=== PATIENT | female | born 1975 | race Hispanic/Latino ===

== ENCOUNTER 2016-11-06 06:16 | Inpatient (IN) | payer BC ==
[2016-11-06] MEDS: Lactated Ringer's 1,000 ML IV SCH ×2 (07:00→09:00)
[2016-11-06 07:26] VITALS: BMI 42.0
[2016-11-06] MEDS ORDERED: Oxytocin 30 units/LR 500ML 30 U/500 ML BAG IV ONE ×2 (08:08→11:12)
[2016-11-06] MEDS ORDERED: cefOXitin Sodium 1 GM in Sodium Chloride 0.9% 100 ML IVPB ONE (08:09)
[2016-11-06 08:21] LABS: BASO % 0.3 % (0.0-2.0); EOS # 0.2 K/uL (0.0-0.7); EOS % 1.5 % (0.0-4.0); HEMOGLOBIN 10.7 g/dL (12.0-16.0); LYMPH # 2.7 K/uL (1.0-4.3); LYMPH % 23.6 % (20.0-40.0); MEAN CELL VOLUME 83.8 fl (81.0-99.0); MEAN CORPUSCULAR HEMOGLOBIN 27.1 pg (27.0-31.0); MEAN CORPUSCULAR HGB CONC 32.3 g/dL (33.0-37.0); MONO # 0.9 K/uL (0.0-0.8); MONO % 7.3 % (0.0-10.0); NEUT # 7.8 K/uL (1.8-7.0); NEUT % 67.3 % (50.0-75.0); NRBC % 0.1 % (0.0-0.0); RBC 3.94 Mil/uL (3.80-5.20); RED CELL DISTRIBUTION WIDTH 15.1 % (11.5-14.5); WHITE BLOOD COUNT 11.6 K/uL (4.8-10.8)
[2016-11-06] MEDS ORDERED: Morphine 5 mg/10 ml preservative-free Inj(Duramorph) ONE (09:41)
[2016-11-06] MEDS ORDERED: Phenylephrine 10 mg/ml Inj ONE (09:41)
[2016-11-06] MEDS ORDERED: DiphenhydrAMINE 50 mg/ml Inj IVP PRN (12:09)
[2016-11-06] MEDS ORDERED: Oxycodone/Acetaminophen 5/325 mg Tab PO PRN (12:10)
--- NOTE | 2016-11-06 12:30 | OBADHP ---
Datetime: 11/06/2016 12:25 Pelvic Type - PN: Adequate Extremities - PN: Normal Abdomen - PN: Normal Back - PN: Normal Breast - PN: Normal Lungs - PN: Normal Heart - PN: Normal Thyroid - PN: Normal Neurologic - PN: Normal HEENT - PN: Normal General - PN: Normal Presentation-Admit: Vertex FHR - Baseline A Provider: 120 Membranes, Provider: Intact Contraction Comments Provider: irregular Gestation - Est Wks by US: 39.0 Vital Signs Provider: Reviewed; Within Normal Limits IP Chief Complaint: Uterine contractions NICHD Variability Prov Fetus A: Moderate 6-25bpm NICHD Accel Fetus A IP Provider: 10X10 FHR Category Provider Fetus A: Category I NICHD Decel Fetus A IP Provider: None Dilatation, Provider: ft Effacement, Provider: 50% Station, Provider: -2 Genitourinary Exam: Normal DTRs - PN: Normal EGA AdmitDate IP: 39.0 IP Adm Impression: Term, intrauterine ; Intact Membranes IP Admit Plan: Admit to unit; Initiate Section protocol
--- NOTE | 2016-11-06 12:39 | OBDS ---
DELIVERY PERSONNEL Delivery Doctor: Milly Gates MD Scrub Nurse: Renee Chowdhury Public Stenographer: Janna Li RN Anesthesiologist: Dr. Geronimo MATERNAL INFORMATION Delivery Anesthesia: Spinal Medications in Delivery: Pitocin 30 units Estimated Blood Loss (ml): 800 Placenta Cultured: No Maternal Complications: None Provider Comments: delivery of live baby girl 9//9 clear fluid inuchal cord tubes and ovaries wnl ebl 800ml LABOR SUMMARY EDC: 11/13/2016 00:00 No. Babies in Womb: 1 Attempted: No Labor Anesthesia: Spinal LABOR INFORMATION Reason for Induction: Not Applicable Onset of Labor: 11/06/2016 05:00 Oxytocin: N/A Group B Beta Strep: Negative Steroids Given: None Reason Steroids Not Administered: Not Applicable MEMBRANES Membranes Rupture Method: Artificial Amniotic Fluid Color: Clear Amniotic Fluid Amount: Moderate Amniotic Fluid Odor: Normal STAGES OF LABOR Stage 3 hrs: 0 Stage 3 min: 1 Total Time in Labor hrs: 6 Total Time in Labor min: 12 VAGINAL DELIVERY Episiotomy: None Laceration Extension: N/A Laceration Type: None Sponge Count Correct: Yes Sharps Count Correct: Yes Count Comment: correct CSECTION DELIVERY Primary Indication: Repeat Elective Secondary Indication: Other Other Secondary Indication: previous c/s in labor CSection Urgency: Elective CSection Incidence: Repeat Labor: Labor Elective: Elective CSection Incision: Lower Uterine Transverse BABY A INFORMATION Delivery Date/Time: 11/06/2016 11:11 Method of Delivery: Born in Route : No : N/A Forceps: N/A Vacuum Extraction: N/A Shoulder Dystocia : No SHOULDER DYSTOCIA BABY A Delivery Date/Time: 11/06/2016 11:11 PRESENTATION/POSITION BABY A Presentation: Cephalic Cephalic Presentation: Vertex Breech Presentation: N/A PLACENTA INFORMATION BABY A Placenta Delivery Time : 11/06/2016 11:12 Placenta Method of Delivery: Spontaneous Placenta Status: Delivered SCORES BABY A Heart Rate 1 min: >100 bpm Resp Effort 1 min: Good Cry Reflex Irritability 1 min: Cough or Sneeze or Pulls Away Muscle Tone 1 min: Active Motion Color 1 min: Body [place], Extremities Blue Resuscitation Effort 1 min: Tactile Stimulation SCORE 1 MIN: 9 Heart Rate 5 min: >100 bpm Resp Effort 5 min: Good Cry Reflex Irritability 5 min: Cough or Sneeze or Pulls Away Muscle Tone 5 min: Active Motion Color 5 min: Body [place], Extremities Blue Resuscitation Effort 5 min: Tactile Stimulation SCORE 5 MIN: 9 INFANT INFORMATION BABY A Gestational Age at Delivery: 39.0 Gestational Status: Term Outcome : Liveborn Condition : Stable Infant Sex: Female IDENTIFICATION/MEDS BABY A ID Band Number: [id number] ID Band Location: Left Leg; Left Arm WEIGHT/LENGTH BABY A Birthweight (gms): 3300 Infant Weight (lb): 7 Weight (oz): 4 CORD INFORMATION BABY A No. Cord Vessels: 3 Nuchal Cord : Around Neck x1, Loose Suction: None ASSESSMENT BABY A Infant Complications: None Physical Findings at Delivery: Within Normal Limits Respirations: Appears Normal Exhaust Machine Operator/ALS Called : No Infant Care By: Bonnie Odom Transferred To: Nursery
[2016-11-07] MEDS: Oxycodone/Acetaminophen 5/325 mg Tab PO PRN ×2 (06:09→21:36)
[2016-11-07 07:40] LABS: BASO % 0.3 % (0.0-2.0); EOS # 0.2 K/uL (0.0-0.7); EOS % 1.2 % (0.0-4.0); HEMOGLOBIN 10.6 g/dL (12.0-16.0); LYMPH # 2.1 K/uL (1.0-4.3); LYMPH % 16.1 % (20.0-40.0); MEAN CELL VOLUME 84.7 fl (81.0-99.0); MEAN CORPUSCULAR HEMOGLOBIN 27.5 pg (27.0-31.0); MEAN CORPUSCULAR HGB CONC 32.5 g/dL (33.0-37.0); MEAN PLATELET VOLUME 8.8 fl (7.2-11.7); MONO # 0.8 K/uL (0.0-0.8); MONO % 5.9 % (0.0-10.0); NEUT # 10.2 K/uL (1.8-7.0); NEUT % 76.5 % (50.0-75.0); RBC 3.86 Mil/uL (3.80-5.20); RED CELL DISTRIBUTION WIDTH 14.9 % (11.5-14.5); WHITE BLOOD COUNT 13.3 K/uL (4.8-10.8)
--- NOTE | 2016-11-07 09:39 | OBPPN ---
Datetime: 11/07/2016 09:36 PP Pain Prov: Within normal limits PP Pain Prov comment: No SOB chest pains or leg pains PP Nausea Prov: Denies PP Flatus Prov: Yes PP Breasts Prov: Normal PP Lungs Prov: Normal PP Abdomen/Uterus Prov: Abnormal PP Lochia Prov: Normal PP Vulva/Perineum Prov: Normal PP CVA Tenderness Prov: Normal PP Extremities Prov: Abnormal PP C/S Incision Prov: Normal PP Progress Prov: Not Applicable PP Comments Phys Exam Prov: Abd soft not distended fundus firm below the umb Incision clean and dry no bleeding or discharge Ext no calf tenderness. PP Impression Prov: Normal progression PP Plan Prov: Continue present management PP Progress Note Prov: OOB and ambulation Continue PO care and pending cbc IP PP Procedures: None Vital Signs Provider PP: Reviewed
[2016-11-07] MEDS ORDERED: Simethicone 80 mg Chewtab PO PRN (12:46)
[2016-11-07] MEDS: Simethicone 80 mg Chewtab PO SCH (21:30)
--- NOTE | 2016-11-07 23:48 | OP ---
PROCEDURE DATE: 11/06/2016 PREOPERATIVE DIAGNOSIS: Term , previous section, and early labor. POSTOPERATIVE DIAGNOSIS: Term , previous section, and early labor. PROCEDURE: Repeat low transverse section. SURGEON: Dr. Gates. CORPORATE LAW ASSISTANT: Dr. Cardenas. TYPE OF ANESTHESIA: Spinal anesthesia. ANESTHESIA ADMINISTERED BY: Dr. Geronimo FINDINGS: Term size uterus, live baby girl, Apgars 9 and 9, clear fluid, with 1 loose nuchal cord. ESTIMATED BLOOD LOSS: 800 mL DESCRIPTION OF PROCEDURE: With the patient in the supine position under spinal anesthesia, the patient was prepped and draped in the usual sterile manner. Pfannenstiel incision was made and taken down to the fascia in layers. Dr. Cardenas was present from the beginning of the surgery and assisted in preparation of the procedure. After the Pfannenstiel incision was made and taken down to the fascia, fascia was incised and extended bilaterally. Peritoneum was grasped and muscles were from the fascia by sharp and blunt dissection after the peritoneum was grasped and incised vertically. Upon entering the abdominopelvic cavity, pericolic gutters were packed with wet laps, pushing the bowel away from the operative field. After this was done, a lateral flap was established pushing the bladder away from the operative field. Then a low transverse incision was made bilaterally. Baby was removed without any complication with 1 loose nuchal cord and the baby was given to key holder who resuscitated. The placenta was removed intact and uterus exteriorized and cleaned. After this was done, the uterus was closed in 2 layers with 1 Vicryl and maintaining hemostasis. Pelvic cavity was irrigated until clean and uterus was in reposition. The hemostasis was again maintained. The peritoneum was closed with 1 Vicryl. Muscles were approximated with 1 Vicryl. Following that the fascia was closed in , Dr. Cardenas doing his half, and I am doing my half with running interlocking stitch with 2-0 Vicryl. Following this a subcutaneus stitch was placed approximated in layers and following this the skin was closed with sean. Estimated blood loss was about [address] Cardenas was present from the beginning of the surgery to the end of the surgery where he assisted me in every step of the way. The patient tolerated the procedure very well. and was in satisfactory condition on her way to recovery room. Gary Gates MD
[2016-11-08] MEDS: Lactated Ringer's 1,000 ML IV SCH ×2 (07:39→15:39)
[2016-11-08] MEDS: Simethicone 80 mg Chewtab PO SCH ×4 (09:00→16:45)
--- NOTE | 2016-11-08 11:57 | OBPPN ---
Datetime: 11/08/2016 11:45 PP Pain Prov: Within normal limits PP Pain Prov comment: No SOB, chest pains or leg pains PP Nausea Prov: Denies PP Flatus Prov: Yes PP BM Prov: Yes PP Nausea Prov comment: voiding well PP Breasts Prov: Normal PP Heart Prov: Normal PP Lungs Prov: Normal PP Abdomen/Uterus Prov: Abnormal PP Lochia Prov: Normal PP Vulva/Perineum Prov: Normal PP CVA Tenderness Prov: Normal PP Extremities Prov: Abnormal PP C/S Incision Prov: Normal PP Progress Prov: Not Applicable PP Comments Phys Exam Prov: Breast NT, not engorged Abd soft not distended fundus firm below the um b. Incision clean and dry no suppt or active bleeding Ext juan edema PP Impression Prov: Normal progression PP Plan Prov: Continue present management PP Progress Note Prov: Continue PO care OOB and ambulation IP PP Procedures: None Vital Signs Provider PP: Reviewed
--- NOTE | 2016-11-09 07:02 | OBPPN ---
Datetime: 11/09/2016 06:57 PP Pain Prov: Within normal limits PP Pain Prov comment: no SOB, chest or leg pains PP Nausea Prov: Denies PP Flatus Prov: Yes PP BM Prov: Yes PP Nausea Prov comment: voiding well PP Breasts Prov: Normal PP Lungs Prov: Normal PP Abdomen/Uterus Prov: Abnormal PP Lochia Prov: Normal PP Vulva/Perineum Prov: Normal PP CVA Tenderness Prov: Normal PP Extremities Prov: Abnormal PP C/S Incision Prov: Normal PP Progress Prov: Not Applicable PP Comments Phys Exam Prov: breast Not engorged NT, Abd soft ND, depressible, fundus firm, incision clean and dry no suppt or discharge, ext no calf tenderness bilateral edema. PP Impression Prov: Normal progression PP Plan Prov: Discharge PP Progress Note Prov: D/C home with instructions and appt to office 1 wk IP PP Procedures: None Vital Signs Provider PP: Reviewed
--- NOTE | 2016-11-09 07:02 | OBDCSUM ---
Datetime: 11/09/2016 07:00 Discharged to, Provider: Home Follow up at, Provider: Dr Gates Disch Instr Activity: Bedrest; May be up to bathroom; May be up for meals; May Shower Disch Instr Diet: Regular Discharge Instructions, Provider: Routine instructions given Discharge Diagnosis, Provider: Term Delivered Follow up in weeks, Provider: 1 wk Disch Referrals: None Contraception discussed, Prov: Yes Disch Activity Restrictions: No exercising; No lifting; No driving; Minimize walking; Minimize stair -climbing; No sexual activity; Nothing in vagina - [place], tampons, douche Discharge Comment, Provider: Rx for percocet given Pelvic and bed rest Contraception after Delivery: Undecided
[2016-11-09] MEDS: Simethicone 80 mg Chewtab PO SCH (09:51)
[2016-11-09 17:54] VITALS: BP 119/70; PULSE 76; RESP 20; TEMP 97.6
== END 2016-11-09 12:15 | disposition home or self-care (01) | DRG 766 ==
LOC: H.EROB2 06:16 → H.L&D 07:40 → H.OB/GYN 15:00
PROVIDERS: ADMIT Specialist; ATTEND Specialist
PROC: 10D00Z1 Extraction of Products of Conception, Low, Open Approach (ICD-10-PCS; principal; 2016-11-06)
PROC: 4A1HXCZ Monitoring of Products of Conception, Cardiac Rate, External Approach (ICD-10-PCS; 2016-11-06)
DX: O34.211 Maternal care for low transverse scar from previous cesarean delivery (principal); O69.81X0 Labor and delivery complicated by cord around neck, without compression, not applicable or unspecified; O09.523 Supervision of elderly multigravida, third trimester; Z3A.39 39 weeks gestation of pregnancy; Z37.0 Single live birth

== ENCOUNTER 2016-11-14 23:03 | Observation (INO) | payer BC ==
[2016-11-14 23:04] VITALS: BMI 40.2
[2016-11-14] MEDS ORDERED: Morphine 4 MG/ML VIAL IVP ONE (23:26)
[2016-11-14] MEDS ORDERED: Sodium Chloride 0.9% 1,000 ML IV SCH (23:30)
--- NOTE | 2016-11-14 23:30 | ED PDOC ---
HPI: Female Pain Time Seen by Provider: 11/14/16 23:15 Chief Complaint (Nursing): Female Genitourinary Chief Complaint (Provider): Vaginal Bleeding History Per: Patient History/Exam Limitations: no limitations Onset/Duration Of Symptoms: Hrs Current Symptoms Are (Timing): Still Present Severity: Moderate Pain Scale Rating Of: 7 Quality Of Discomfort: Cramping, "Pain" Associated Symptoms: Chills. denies: Fever, Nausea Alleviating Factors: None Additional History Per: Patient Additional Complaint(s): 41 y/o female with no significant medical problems at POD#8 s/p presenting to ED with reports of heavy and active vaginal bleeding that started about an hour prior to presentation associated with pelvic pain. Has already used 2 pads for which all 2 were soaking wet. Pt is a currently not breast feeding and has been doing well since being home from the hospital earlier this week. Denies any fever, nausea, vomiting, lightheadedness, or visual changes. Abnormal Vaginal Bleeding: Yes Last Menstral Period: Recently gave (11/06/16) : 2 Para: 2 Miscarriage: 0 Past Medical History Vital Signs: Last Vital Signs Temp 98.7 F 11/14/16 23:04 Pulse 95 H 11/14/16 23:04 Resp 16 11/14/16 23:04 BP 134/91 H 11/14/16 23:04 Pulse Ox 100 11/14/16 23:04 - Medical History PMH: Denies: Depression, Diabetes, HTN - Surgical History Surgical History: - Family History Family History: States: No Known Family Hx - Home Medications Home Medications: Ambulatory Orders Medication Instructions Recorded Vit No.126/Iron/Folic 1 tab PO DAILY MDD 1tab 06/16/16 [Classic Tablet] oxyCODONE/Acetaminophen [Percocet 1 tab PO Q4 PRN #30 tab 11/09/16 5/325 mg Tab] - Allergies Allergies/Adverse Reactions: Allergies Allergy/AdvReac Type Severity Reaction Status Date / Time No Known Allergies Allergy Verified 11/14/16 23:04 Review of Systems Constitutional: Positive for: Chills. Negative for: Fever, Sweats Cardiovascular: Negative for: Chest Pain Respiratory: Negative for: Cough, Shortness of Breath Gastrointestinal: Negative for: Nausea, Vomiting Genitourinary Female: Positive for: Vaginal Bleeding. Negative for: Dysuria, Frequency Neurological: Negative for: Weakness, Seizures Physical Exam - Physical Exam Appears: Positive for: Uncomfortable Head Exam: Positive for: NORMAL INSPECTION, NORMOCEPHALIC Skin: Positive for: Normal Color Cardiovascular/Chest: Positive for: Regular Rate, Rhythm, Chest Non Tender. Negative for: Edema, Murmur Respiratory: Positive for: Normal Breath Sounds. Negative for: Decreased Breath Sounds, Wheezing Gastrointestinal/Abdominal: Positive for: Bowel Sounds, Soft, Tenderness (in lower abdomen) Pelvic Exam: Positive for: Active Bleeding Extremity: Negative for: Tenderness, Pedal Edema Neurologic/Psych: Positive for: Alert, station repairer II-XII, Oriented - Laboratory Results Result Diagrams: 11/14/16 23:50 11/14/16 23:50 - ECG O2 Sat by Pulse Oximetry: 100 - Progress ED Course And Treament: cbc, cmp type and screen BHCG transvaginal ultrasound to rule out retained products of contraception: No evidence of retained products Spoken with pt's BACKEND TESTER and made aware of pt being in ED actively bleeding, pt seen by her private BACKEND TESTER Pt will be admitted to [facility] for observation Once dose of Methergine 0.2IM given to pt Will continue to monitor Re-evaluation Time: 01:45 Condition: Improving,but remains with symptoms (pain improved, but still bleeding ) - Physician Consult Information Time Consulting Physican Contacted: 12:30 Physician Contacted: Gary Gates Outcome Of Conversation: Saw pt, recommends admiting for observation and treating as PPH Disposition - Clinical Impression Clinical Impression: hemorrhage of vagina - Patient ED Disposition Is Patient to be Admitted: Yes - Disposition Disposition Time: 02:20 Condition: FAIR - Pt Status Changed To: Hospital Disposition Of: Observation
[2016-11-14] MEDS ORDERED: Morphine 4 MG/ML VIAL ONE (23:31)
[2016-11-15 00:08] LABS: HEMOGLOBIN 9.7 g/dL (12.0-16.0); MEAN CELL VOLUME 83.3 fl (81.0-99.0); MEAN CORPUSCULAR HEMOGLOBIN 27.7 pg (27.0-31.0); MEAN CORPUSCULAR HGB CONC 33.2 g/dL (33.0-37.0); RBC 3.52 Mil/uL (3.80-5.20); RED CELL DISTRIBUTION WIDTH 14.8 % (11.5-14.5)
[2016-11-15 00:25] LABS: ALB/GLOB RATIO 1.1 (1.0-2.1); ALBUMIN 3.5 g/dL (3.5-5.0); ALT/SGPT 38 U/L (9-52); AST/SGOT 38 U/L (14-36); BLOOD UREA NITROGEN 20 mg/dl (7-17); CALCIUM 8.9 mg/dL (8.4-10.2); GFR AFRICAN-AMERICAN > 60; GFR NON-AFRICAN AMERICAN > 60
[2016-11-15 00:36] LABS: INR 1.2 (0.9-1.2); PARTIAL THROMBOPLASTIN TIME 35.3 Seconds (25.6-37.1)
[2016-11-15] MEDS: Sodium Chloride 0.9% 1,000 ML IV SCH ×2 (01:57→21:30)
[2016-11-15 05:57] LABS: HEMOGLOBIN 8.1 g/dL (12.0-16.0); MEAN CELL VOLUME 83.6 fl (81.0-99.0); MEAN CORPUSCULAR HEMOGLOBIN 27.1 pg (27.0-31.0); MEAN CORPUSCULAR HGB CONC 32.4 g/dL (33.0-37.0); RBC 2.98 Mil/uL (3.80-5.20); RED CELL DISTRIBUTION WIDTH 14.7 % (11.5-14.5); WHITE BLOOD COUNT 14.9 K/uL (4.8-10.8)
--- NOTE | 2016-11-15 08:07 | US ---
PROCEDURE: HISTORY: r/o retained products of conception COMPARISON: None TECHNIQUE: FINDINGS: Uterus is enlarged measuring 17.8 x 10.7 x 14.7 centimeters. The endometrium measures 18 millimeters with complex echotexture. There is a roughly 4.2 x 4.3 centimeter mass in the corpus which may represent a fibroid. The ovaries are not identified. IMPRESSION: Enlarged uterus with complex endometrial canal; cannot rule out retained products of conception. Possible corporal leiomyoma. Recommend follow-up and clinical correlation.
[2016-11-15 08:11] LABS: HEMOGLOBIN 7.6 g/dL (12.0-16.0); MEAN CELL VOLUME 83.5 fl (81.0-99.0); MEAN CORPUSCULAR HEMOGLOBIN 27.7 pg (27.0-31.0); MEAN CORPUSCULAR HGB CONC 33.2 g/dL (33.0-37.0); RBC 2.75 Mil/uL (3.80-5.20); RED CELL DISTRIBUTION WIDTH 14.9 % (11.5-14.5); WHITE BLOOD COUNT 11.9 K/uL (4.8-10.8)
[2016-11-15] MEDS ORDERED: Oxytocin 30 units/LR 500ML 30 U/500 ML BAG IV ONE (09:34)
[2016-11-15 09:46] LABS: HEMOGLOBIN 7.2 g/dL (12.0-16.0); MEAN CELL VOLUME 83.4 fl (81.0-99.0); MEAN CORPUSCULAR HEMOGLOBIN 27.2 pg (27.0-31.0); MEAN CORPUSCULAR HGB CONC 32.6 g/dL (33.0-37.0); RBC 2.66 Mil/uL (3.80-5.20); RED CELL DISTRIBUTION WIDTH 14.7 % (11.5-14.5); WHITE BLOOD COUNT 12.1 K/uL (4.8-10.8)
[2016-11-15 09:56] LABS: ALB/GLOB RATIO 1.1 (1.0-2.1); ALBUMIN 3.1 g/dL (3.5-5.0); ALT/SGPT 32 U/L (9-52); AST/SGOT 38 U/L (14-36); BLOOD UREA NITROGEN 16 mg/dl (7-17); CALCIUM 8.1 mg/dL (8.4-10.2); GFR AFRICAN-AMERICAN > 60; GFR NON-AFRICAN AMERICAN > 60
--- NOTE | 2016-11-15 12:30 | CP.PCM.PN ---
Subjective - Date & Time of Evaluation Date of Evaluation: 11/15/16 Time of Evaluation: 12:27 - Subjective Subjective: feels comfortable at present mild bleeding Objective - Vital Signs/Intake and Output Vital Signs (last 24 hours): Temp Pulse Resp BP Pulse Ox 98.9 F 102 H 18 120/74 98 11/15/16 12:20 11/15/16 12:20 11/15/16 12:20 11/15/16 12:20 11/15/16 12:20 - Medications Medications: Current Medications Sodium Chloride (Sodium Chloride 0.9%) 1,000 mls @ 150 mls/hr IV .Q6H40M [facility] Stop: 11/16/16 01:32 Last Admin: 11/15/16 01:57 Dose: 150 mls/hr Oxytocin (Oxytocin 30 Units/Lr 500ml) 30 u in 500 mls @ 100 mls/hr IV .Q5H ONE PRN Reason: Protocol Stop: 11/15/16 14:33 Last Admin: 11/15/16 11:31 Dose: 100 mls/hr Ketorolac Tromethamine (Toradol) 30 mg IVP Q6 PRN PRN Reason: Pain, moderate (4-7) Last Admin: 11/15/16 11:37 Dose: 30 mg Methylergonovine Maleate (Methergine) 0.2 mg PO Q8 ROE - Labs Labs: 11/15/16 09:30 11/15/16 09:30 PT 12.0 Seconds (9.8-13.1) 11/14/16 23:50 INR 1.2 (0.9-1.2) 11/14/16 23:50 APTT 35.3 Seconds (25.6-37.1) 11/14/16 23:50 - Eye Exam Additional comments: v.s stable afebrile mild bleeding Assessment and Plan - Assessment and Plan (Free Text) Assessment: post bleeding s/p Plan: will transfuse at present continue present care
--- NOTE | 2016-11-15 16:49 | PCM.RRTMUL ---
TRAVELING BUYER Nurse Assessment - Situation TRAVELING BUYER Responder Arrival Time:: 09:25 Location:: [address] [place] [address] Room Number:: [id number] TRAVELING BUYER Reason for Call: Looks Sicker TRAVELING BUYER Called By: RN - IV IV Inserted during TRAVELING BUYER?: No - Respiratory Oxygen Delivery Method:: Room Air - Medication Medications Administered During TRAVELING BUYER :: Mthergen IM - Diagnostic Test Ordered EKG:: No Chest X-Ray:: No CT Scan:: No - Stat Labs Ordered TRAVELING BUYER Stat Labs Ordered:: CBC TRAVELING BUYER Other Labs Ordered:: Type and Cross CPR started during TRAVELING BUYER?: No - Vital Signs Blood Pressure:: 136/89 Pulse Rate:: 111 Respiratory Rate:: 14 Temperature:: 99.0 F - Joey Coma Scale Coma Scale Eye Opening:: Spontaneous Coma Scale Motor:: Obeys Commands Movement Coma Scale Verbal:: Oriented Coma Scale Total:: 15 - Time TRAVELING BUYER Ended Time TRAVELING BUYER Ended:: 09:45 - Vital Signs at end of TRAVELING BUYER Blood Pressure:: 124/79 Pulse Rate:: 124 Respiratory Rate:: 20 Temperature:: 98 F O2 Sat by Pulse Oximetry:: 100 - Recommendations 5) TRAVELING BUYER Level of Care Recommendations: Transfer to [address] [place] [address] 6) Notifications: Attending Physician, Consultations, Family or Designated Caregiver I.Reason for TRAVELING BUYER - A) Acute Change in Patient: Subjective: TRAVELING BUYER Time: 9:22am TRAVELING BUYER Location: [address] [place] [address] TRAVELING BUYER Reason: Acute Bleed S: TRAVELING BUYER called by nurse because patient of acute vaginal bleeding. Pt noted to be complaining of severe abdominal pain the night prior O: TRAVELING BUYER Vitals: Temp 98.1, BP 119/89, HR 132, RR 16, 100% on Rm air General: Pt seen lying in bed, tearful, NAD, alert oriented x3 Cardiac: Regular rate and rythm, Normal S1, S2, no murmurs Lungs: Not in any respiratory distress, no crackles, wheezing Abdominal Exam: Non tender, nondistended, Uterus fondus elevated, normal bowel sounds Peripheral: No pedal edema, good capillary refills, dorsal pulsus +2 BL TRAVELING BUYER Interventions: CBC, CMP 1 unit of RBC transfused (Last hg was 7.9) Pitocin 30units IV as per OB 1 liter fluid bolus, IV A/P: 41 yo female s/p 2 days ago, presents with an acute vaginal bleed. 1. Follow Labs, Monitor BP 2. Start Pitocin 30ml IV 3. Consult OB 4. Transfer to Tele TRAVELING BUYER End Time: 9:43am
[2016-11-16] MEDS ORDERED: Simethicone 80 mg Chewtab PO ONE (03:16)
[2016-11-16 06:41] LABS: BASO % 0.5 % (0.0-2.0); EOS # 0.3 K/uL (0.0-0.7); EOS % 2.7 % (0.0-4.0); HEMOGLOBIN 6.9 g/dL (12.0-16.0); LYMPH # 2.3 K/uL (1.0-4.3); LYMPH % 21.9 % (20.0-40.0); MEAN CELL VOLUME 85.2 fl (81.0-99.0); MEAN CORPUSCULAR HEMOGLOBIN 28.5 pg (27.0-31.0); MEAN CORPUSCULAR HGB CONC 33.5 g/dL (33.0-37.0); MEAN PLATELET VOLUME 7.8 fl (7.2-11.7); MONO # 0.7 K/uL (0.0-0.8); MONO % 6.7 % (0.0-10.0); NEUT # 7.2 K/uL (1.8-7.0); NEUT % 68.2 % (50.0-75.0); RBC 2.41 Mil/uL (3.80-5.20); RED CELL DISTRIBUTION WIDTH 14.8 % (11.5-14.5); WHITE BLOOD COUNT 10.5 K/uL (4.8-10.8)
--- NOTE | 2016-11-16 08:28 | CP.PCM.PN ---
Subjective - Date & Time of Evaluation Date of Evaluation: 11/16/16 Time of Evaluation: 08:23 - Subjective Subjective: feels better today less bleeding Objective - Vital Signs/Intake and Output Vital Signs (last 24 hours): Temp Pulse Resp BP Pulse Ox 98.7 F 101 H 18 113/73 97 11/16/16 08:09 11/16/16 08:09 11/16/16 08:09 11/16/16 08:09 11/16/16 08:09 - Medications Medications: Current Medications Alprazolam (Xanax) 0.25 mg PO DAILY PRN PRN Reason: Anxiety Stop: 11/23/16 09:01 Last Admin: 11/15/16 21:31 Dose: 0.25 mg Ketorolac Tromethamine (Toradol) 30 mg IVP Q6 PRN PRN Reason: Pain, moderate (4-7) Last Admin: 11/15/16 17:33 Dose: 30 mg Methylergonovine Maleate (Methergine) 0.2 mg PO Q8 ROE Last Admin: 11/16/16 00:01 Dose: 0.2 mg - Labs Labs: 11/16/16 05:25 11/15/16 09:30 PT 12.0 Seconds (9.8-13.1) 11/14/16 23:50 INR 1.2 (0.9-1.2) 11/14/16 23:50 APTT 35.3 Seconds (25.6-37.1) 11/14/16 23:50 - Eye Exam Additional comments: v.s stable afebrile h/h 6.9/20.5 Assessment and Plan - Assessment and Plan (Free Text) Assessment: stable hd1 Plan: will transfuse 2 units prbc and repeat h/h if acceptable will dc home
[2016-11-16 12:30] VITALS: RESP 20
[2016-11-16 20:43] LABS: HEMOGLOBIN 8.5 g/dL (12.0-16.0); MEAN CELL VOLUME 85.4 fl (81.0-99.0); MEAN CORPUSCULAR HEMOGLOBIN 29.1 pg (27.0-31.0); RBC 2.92 Mil/uL (3.80-5.20); RED CELL DISTRIBUTION WIDTH 15.1 % (11.5-14.5); WHITE BLOOD COUNT 11.1 K/uL (4.8-10.8)
[2016-11-16 23:47] VITALS: BP 148/88; PULSE 95; TEMP 98.1; O2SAT 98
== END 2016-11-16 21:59 | disposition home or self-care (01) ==
LOC: H.ER 23:03 → H.ERHOLD 11-15 01:26 → H.MEDSURG1 11-15 02:58 → H.TEL 11-15 09:56
PROVIDERS: ADMIT Specialist; ATTEND Specialist
DX: O72.2 Delayed and secondary postpartum hemorrhage (principal)
CPT/HCPCS: 36415; 36430; 76830; 76856; 80053; 82948; 84702; 85014; 85018; 85025; 85027; 85610; 85730; 86850; 86900; 86920; 96372; 96374; 99285; G0378; J1885; J2210; J2590; J7040; P9051